=== PATIENT | male | born 1930 | race Caucasian/White ===

== ENCOUNTER 2017-03-10 07:41 | Emergency (ER) | payer MEDICARE, BC ==
--- NOTE | 2017-03-10 08:07 | Emergency Department Record ---
History of Present Illness - General Chief Complaint: Numbness Stated Complaint: RIGHT ARM SWELLING/NUMBNESS Time Seen by Provider: 03/10/17 07:56 Source: Patient Mode of Arrival: Ambulatory Limitations: No limitations - History of Present Illness Initial Comments: The patient is here due to R wrist pain for at least 7 hours. He states the pain woke him up from sleep at 1am. It feels like the wrist and hand are slightly numb and very painful. The patient describes the location as the R wrist and hand in a glove distribution. He also states he feels the hand is swollen. There has been no weakness, PICKETT, visual changes, balance issues or confusion. The patient has had a hx of gout in the past but has not had a flare up in a long time. Onset/Timin -: Hour(s) History of same: Yes Place: Home Severity: Moderate Quality: Numb Improves With: None Worsens With: None On Anticoagulants: Yes Associated Symptoms: Denies other symptoms Treatments Prior to Arrival: Aspirin - [place] Coma Scale Eye Response: (4) Open spontaneously Motor Response: (6) Obeys commands Verbal Response: (5) Oriented [place] Total: 15 - Symptoms of Stroke Onset of Symptoms Date: 03/10/17 Onset of Symptoms Time: 01:00 - Related Data Home Medications: Home Medications Medication Instructions Recorded Confirmed Last Taken Glipizide 5 mg PO DAILY 03/10/17 03/10/17 1 Day Ago ~03/09/17 Naproxen [Naprosyn] 500 mg PO BID 03/10/17 03/10/17 Unknown Previous Rx's Medication Instructions Recorded Hydroxyzine Pamoate [Vistaril] 50 mg PO Q6H PRN #20 capsule 11/28/15 Allergies/Adverse Reactions: Allergies Allergy/AdvReac Type Severity Reaction Status Date / Time No Known Drug Allergies Allergy Verified 03/10/17 07:53 Travel Screening - Travel/Exposure Within Last 30 Days Have you traveled within the last 30 days?: No - Travel/Exposure Within Last Year Have you traveled outside the [place] in the last year?: No - Additonal Travel Details Have you been exposed to anyone with a communicable illness?: No - Travel Symptoms Symptom Screening: None Review of Systems Constitutional: Denies: Chills, Fever Eyes: Denies: Eye discharge ENT: Denies: Congestion, Other Respiratory: Denies: Dyspnea Cardiovascular: Denies: Chest pain Past Medical History - SOCIAL HISTORY Smoking Status: Never smoker Alcohol Use: None Drug Use: None - RESPIRATORY Hx Respiratory Disorders: No - CARDIOVASCULAR Hx Cardio Disorders: Yes Hx Cardiac Cath: Yes Hx Hypertension: Yes Comment:: high cholesterol - NEURO Hx Neuro Disorders: No - GI Hx GI Disorders: No - Hx Genitourinary Disorders: No - ENDOCRINE Hx Endocrine Disorders: Yes Hx Diabetes: Yes - MUSCULOSKELETAL Hx Musculoskeletal Disorders: Yes Hx Gout: Yes (toes) - PSYCH Hx Psych Problems: No - HEMATOLOGY/ONCOLOGY Hx Hematology/Oncology Disorders: No Family Medical History Any Significant Family History?: Yes Hx Heart Disease: Father Physical Exam - General General Appearance: Alert, Oriented x3, Cooperative, No acute distress - Head Head exam: Atraumatic, Normocephalic, Normal inspection - Eye Eye exam: Normal appearance, PERRL - Neck Neck exam: Normal inspection, Full ROM. negative: Tenderness - Respiratory Respiratory exam: Normal lung sounds bilaterally. negative: Respiratory distress - Cardiovascular Cardiovascular Exam: Regular rate, Normal rhythm, Systolic murmur - GI/Abdominal GI/Abdominal exam: Soft, Normal bowel sounds. negative: Tenderness - Extremities Extremities exam: Normal capillary refill, Tenderness (There is diffuse dorsal R wrist tenderness but no warmth or erythema.), Other (There are normal pulses to the R hand.). negative: Normal inspection (There is mild dorsal R wrist swelling.), Full ROM - Neurological Neurological exam: Alert, Normal gait. negative: Abnormal gait, Altered, Motor sensory deficit - Psychiatric Psychiatric exam: negative: Agitated, Anxious - Skin Skin exam: negative: Erythema, Rash Course Vital Signs 03/10/17 07:45 Temperature 98.0 F Pulse Rate 88 Respiratory 16 Rate Blood Pressure 182/97 Pulse Ox 97 - Reevaluation(s) Reevaluation #1: The patient is doing a lot better after the Toradol shot. I did discuss the case with Dr. Treadwell and he would like the patient placed back on Naprosyn and he will see the patient in the office later this week. 03/10/17 09:17 Medical Decision Making - Data Complexity MDM Data: Labs Ordered and/or Reviewed, X-Ray Ordered and/or Reviewed - Lab Data Result diagrams: 03/10/17 08:02 03/10/17 08:02 - Radiology Data Radiology results: Report reviewed (R Wrist: Edema and advanced arthritis.) Disposition Disposition: Discharge Clinical Impression: Wrist joint inflamed Disposition: Home, Self-Care Condition: (2) Stable Instructions: Arthralgia (ED) Additional Instructions: Please ice the wrist when possible and use the splint. Please restart your home Naprosyn for pain and please see Dr. Treadwell on in 3 days if improved. Please see Dr. Treadwell tomorrow if the wrist is worse with any worsening pain or swelling. Forms: Patient Portal Access Time of Disposition: 09:19 Quality - Quality Measures Quality Measures: N/A - Blood Pressure Screening View Details: Yes Does Patient Have Any of the Following: No, Active Dx of HTN Blood Pressure Classification: Hypertensive Reading Systolic Measurement: 182 Diastolic Measurement: 97 Screening for High Blood Pressure: Patient Exclusion, Hx of HTN [G9744]
[2017-03-10 08:14] LABS: BASO % 0.1 % (0-6); EOS % 0.9 % (0-6); GRAN % 76.6 % (47-80); HEMATOCRIT 41.8 % (42.0-52.0); HEMOGLOBIN 14.2 gm/dl (14.0-18.0); LYMPH % 12.1 % (16-45); MEAN CELL VOLUME 90.9 fl (81-97); MEAN CORPUSCULAR HEMOGLOBIN 30.9 pg (27-33); MEAN PLATELET VOLUME 12.3 fl (7.4-10.4); MONO % 10.3 % (0-9); PLATELET COUNT 135 K/uL (130-400); RED CELL DISTRIBUTION WIDTH 13.6 % (11.5-14.5); WHITE BLOOD COUNT W/O DIFF 9.9 K/uL (4.2-12.2)
[2017-03-10 08:23] LABS: BLOOD UREA NITROGEN 15 mg/dL (8-23); CREATININE 0.8 mg/dL (0.7-1.2); EST GLOMERULAR FILTRATION RATE > 60 mL/min
[2017-03-10 08:24] LABS: TOTAL PROTEIN 7.3 g/dL (6.6-8.7)
[2017-03-10 08:26] LABS: GLUCOSE,RANDOM 259 mg/dL (74-109)
[2017-03-10 08:29] LABS: ALB/GLOB RATIO 1.3 (1.1-1.8); ALBUMIN 4.1 g/dL (4.0-5.0); ALKALINE PHOSPHATASE 61 U/L (40-129); ALT/SGPT 19 U/L (<41); AST/SGOT 18 U/L (10.0-50.0); C-REACTIVE PROTEIN 0.59 mg/dL (<0.5)
[2017-03-10] MEDS ORDERED: KETOROLAC 30 MG/ML VIAL IM ONE (08:40)
--- NOTE | 2017-03-10 09:16 | RADIOLOGY REPORT ---
EXAM: RIGHT WRIST HISTORY: ACUTE PAIN RIGHT WRIST WITH SWELLING, NO KNOWN INJURY. TECHNIQUE: Four views of the right wrist were obtained. Comparison: None. FINDINGS: There is advanced degenerative arthritis along the radial aspect of the wrist. Some erosive change in the distal radius as well as the opposing surfaces of the navicular multangular articulation probably all related to the advanced degenerative arthritis. Vascular calcification is seen. Some mild diffuse soft tissue swelling at the wrist. There is probably some chondrocalcinosis as well. IMPRESSION: 1. 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 2. CHONDROCALCINOSIS. 3. VASCULAR CALCIFICATION. 4. SOFT TISSUE SWELLING. JOB NUMBER: [id number] [facility]
== END 2017-03-10 09:29 | disposition home or self-care (01) ==
LOC: ER 07:41
DX: M19.031 Primary osteoarthritis, right wrist (principal); R20.0 Anesthesia of skin
CPT/HCPCS: 29125; 99283; 96372; 99284; 84550; 85025; 86140; 80053; 73110; J1885

== ENCOUNTER 2018-09-18 23:09 | Emergency (ER) | payer MEDICARE, BC ==
[2018-09-18] MEDS ORDERED: POTASSIUM CHLORIDE 20 MEQ TABLET PO ONE (23:28)
--- NOTE | 2018-09-18 23:32 | Emergency Department Record ---
History of Present Illness - General Chief Complaint: Hypertension Stated Complaint: HIGH BLOOD PRESSURE Time Seen by Provider: 09/18/18 23:16 Source: Patient Mode of Arrival: Ambulatory Limitations: No limitations - History of Present Illness Initial Comments: The patient is here due to repeatedly taking his blood pressure at home and finding it elevated recently so he decided to come to the ER. The patient states it has been running high for 2 weeks and he does have an appointment with his PCP next week for it. He denies any CP, SOB, PICKETT, visual changes, or weakness but states he does feel "hazy" at times. The patient has a long hx of HTN and used to be on more medicine for it but recently it has been decreased. Complaint: Other Onset/Timin -: Week(s) Timing: Unsure History of Same: Yes History of Trauma: No Associated Symptoms: Denies other symptoms - [place] Coma Scale Eye Response: (4) Open spontaneously Motor Response: (6) Obeys commands Verbal Response: (5) Oriented [place] Total: 15 - Related Data Home Medications Medication Instructions Recorded Confirmed Last Taken Amiodarone HCl [Pacerone] 1 tab PO DAILY 09/18/18 09/18/18 09/18/18 Apixaban [Eliquis] 1 tab PO DAILY 09/18/18 09/18/18 09/18/18 Glipizide [Glucotrol] 1 tab PO DAILY 09/18/18 09/18/18 09/18/18 Allergies Allergy/AdvReac Type Severity Reaction Status Date / Time No Known Drug Allergies Allergy Verified 09/18/18 23:13 Travel Screening - Travel/Exposure Within Last 30 Days Have you traveled within the last 30 days?: No - Travel/Exposure Within Last Year Have you traveled outside the [place] in the last year?: No - Additonal Travel Details Have you been exposed to anyone with a communicable illness?: No - Travel Symptoms Symptom Screening: None Review of Systems Constitutional: Denies: Chills, Fever Eyes: Denies: Eye discharge ENT: Denies: Congestion Respiratory: Denies: Cough, Dyspnea Cardiovascular: Denies: Arrhythmia, Chest pain Endocrine: Denies: Fatigue Past Medical History - SOCIAL HISTORY Smoking Status: Never smoker Alcohol Use: None Drug Use: None - RESPIRATORY Hx Respiratory Disorders: No - CARDIOVASCULAR Hx Cardio Disorders: Yes Hx Cardiac Cath: Yes Hx Hypertension: Yes Comment:: high cholesterol - NEURO Hx Neuro Disorders: No - GI Hx GI Disorders: No - Hx Genitourinary Disorders: No - ENDOCRINE Hx Endocrine Disorders: Yes Hx Diabetes: Yes - MUSCULOSKELETAL Hx Musculoskeletal Disorders: Yes Hx Gout: Yes (toes) - PSYCH Hx Psych Problems: No - HEMATOLOGY/ONCOLOGY Hx Hematology/Oncology Disorders: No Family Medical History Any Significant Family History?: Yes Hx Heart Disease: Father Course Vital Signs 09/18/18 23:12 Temperature 98.0 F Pulse Rate 80 Respiratory 20 Rate Blood Pressure 195/84 Pulse Ox 98 - Reevaluation(s) Reevaluation #1: The patient is doing very well at this time. His BP is much improved after he relaxed in the ED. He is to see his PCP next week as planned for his BP. 09/18/18 23:54 Medical Decision Making - Data Complexity MDM Data: Labs Ordered and/or Reviewed - Lab Data Result diagrams: 09/18/18 23:30 09/18/18 23:30 Disposition Disposition: Discharge Clinical Impression: Hypertension Disposition: Home, Self-Care Condition: (2) Stable Instructions: Hypertension (ED) Additional Instructions: Please continue your regular medicines and please see your family doctor next week as planned. Return to the ER for any problems. Forms: Patient Portal Access Time of Disposition: 23:55 Quality - Quality Measures Quality Measures: N/A - Blood Pressure Screening View Details: Yes Does Patient Have Any of the Following: No Blood Pressure Classification: Pre-Hypertensive BP Reading Systolic Measurement: 195 Diastolic Measurement: 84 Screening for High Blood Pressure: < Pre-Hypertensive BP, F/U Documented > [G8950] Pre-Hypertensive Follow-up Interventions: Referral to alternative/primary care provider.
[2018-09-18 23:37] LABS: ABSOLUTE NEUTROPHIL COUNT 3.01; BASO % 0.2 % (0-6); EOS % 1.8 % (0-6); GRAN % 53.5 % (47-80); HEMATOCRIT 42.2 % (42.0-52.0); HEMOGLOBIN 13.9 gm/dl (14.0-18.0); MEAN CELL VOLUME 91.3 fl (81-97); MEAN CORPUSCULAR HGB CONC 32.9 g/dl (32-36); MEAN PLATELET VOLUME 11.4 fl (7.4-10.4); MONO % 13.5 % (0-9); PLATELET COUNT 144 K/uL (130-400); RED BLOOD COUNT 4.62 M/uL (4.40-5.70); RED CELL DISTRIBUTION WIDTH 14.9 % (11.5-14.5); WHITE BLOOD COUNT W/O DIFF 5.6 K/uL (4.2-12.2)
[2018-09-18 23:45] LABS: BLOOD UREA NITROGEN 11 mg/dL (8-23); CREATININE 0.9 mg/dL (0.7-1.2); EST GLOMERULAR FILTRATION RATE > 60 mL/min
[2018-09-18 23:46] LABS: TOTAL PROTEIN 7.3 g/dL (6.6-8.7)
[2018-09-18 23:48] LABS: GLUCOSE,RANDOM 154 mg/dL (74-109)
[2018-09-18 23:50] LABS: ALT/SGPT 16 U/L (<41)
[2018-09-18 23:51] LABS: ALB/GLOB RATIO 1.4 (1.1-1.8); ALBUMIN 4.3 g/dL (4.0-5.0); ALKALINE PHOSPHATASE 61 U/L (40-129); AST/SGOT 19 U/L (10.0-50.0)
== END 2018-09-19 00:02 | disposition home or self-care (01) ==
LOC: ER 23:09
DX: I10 Essential (primary) hypertension (principal); E11.9 Type 2 diabetes mellitus without complications; Z79.84 Long term (current) use of oral hypoglycemic drugs
CPT/HCPCS: 80053; 85025; 99283